=== PATIENT | female | born 1940 | race Caucasian/White ===

== ENCOUNTER 2017-08-12 19:26 | Inpatient (IN) | payer MEDICAID ==
[~2017-08-12] VITALS: Ht 165.1 cm; Wt 78.9 kg
[2017-08-12 19:28] VITALS: BP 145/80
--- NOTE | 2017-08-12 19:40 | NUR ---
DEPUTY FAC ENGINEER FROM [facility] PUBLIC PROFESSIONAL ORGANIZER OFFICE RETURNED CALL - CC JACOB GAVE CONSENT FOR TREATMENT ON THE PHONE TO RODGER MOORE RN I LISTENED IN ON THE CALL. PUBLIC ADMINISTRATORS OFFICE [phone] AFTER HOURS ANSWERING SERVICE [phone]
[2017-08-12] MEDS ORDERED: CLARITIN10 MG PO (19:41)
[2017-08-12] MEDS ORDERED: FLONASE 0.05%50 MCG NASAL (19:43)
[2017-08-12] MEDS ORDERED: REMERON15 MG PO (19:45)
[2017-08-12] MEDS ORDERED: QUETIAPINE FUM100 MG PO ×2 (19:46→19:51)
[2017-08-12] MEDS ORDERED: VITAMIN D2000 UNIT PO (19:50)
[2017-08-12] MEDS ORDERED: TYLENOL325 MG PO (19:53)
[2017-08-12] MEDS ORDERED: MIRALAX17 G1 PO (19:54)
[2017-08-12 20:03] LABS: ABSOLUTE BASOPHILS 0.1 thou/uL (0.0-0.2); ABSOLUTE EOSINOPHILS 0.5 thou/uL (0.0-0.7); ABSOLUTE LYMPHOCYTES 2.2 thou/uL (0.8-5.3); ABSOLUTE NEUTROPHILS 4.5 thou/uL (1.6-8.1); EOSINOPHILS 6.4 %; HEMATOCRIT 24.5 % (37.0-47.0); HEMOGLOBIN 7.3 gm/dL (12.0-15.0); LYMPHOCYTES 26.8 %; MCH 20.5 pg (26.0-34.0); MCHC 29.9 g/dL (28.0-37.0); MCV 68.5 fL (80.0-100.0); MONOCYTES 11.8 %; MPV 7.9 fl. (7.2-11.1); NUCLEATED RBCS 0 /100WBC; PLATELET COUNT* 424 thou/uL (150-400); RBC 3.57 mil/uL (4.20-5.00); RDW-CV 16.4 % (10.5-14.5); WBC 8.4 thou/uL (4.0-11.0)
[2017-08-12 20:15] LABS: CALCIUM 8.6 mg/dL (8.5-10.1); CREATININE 0.8 mg/dL (0.6-1.3); POTASSIUM 3.7 mmol/L (3.5-5.1)
[2017-08-12 20:18] LABS: APTT 24.3 Seconds (25.0-31.3); INR 0.9; PROTIME 9.2 Seconds (9.20-11.50)
[2017-08-12 20:20] LABS: ALBUMIN 2.9 g/dL (3.4-5.0); TOTAL BILIRUBIN 0.2 mg/dL (<0.1-1.0); TOTAL PROTEIN 6.7 g/dL (6.4-8.2)
[2017-08-12 20:30] LABS: HYPOCHROMASIA 2+; OVALOCYTES 1+; PLATELET ESTIMATE ADEQUATE
[2017-08-12 20:31] LABS: MICROCYTES 3+
[2017-08-12 20:32] LABS: ANISOCYTOSIS 1+
[2017-08-12 21:06] VITALS: BP 111/00
[2017-08-12 21:41] LABS: URINE BILIRUBIN NEGATIVE (Negative); URINE BLOOD NEGATIVE (Negative); URINE CLARITY CLEAR; URINE COLOR STRAW; URINE GLUCOSE-RANDOM NEGATIVE (Negative); URINE KETONES NEGATIVE (Negative); URINE LEUKOCYTES-REFLEX TRACE (Negative); URINE NITRITE-REFLEX NEGATIVE (Negative); URINE PROTEIN NEGATIVE (Negative); URINE SPECIFIC GRAVITY <= 1.005 (1.005-1.030); URINE UROBILINOGEN 0.2 E.U./dl (0.2-1.0)
[2017-08-12 21:50] LABS: CRYSTALS None Seen /LPF (None Seen); MUCUS None Seen strn/LPF (None Seen); SQUAMOUS 0-3 Few /LPF (0-3)
[2017-08-12 21:51] LABS: BACTERIA-REFLEX 1-9 Few /HPF (None Seen); CASTS None Seen /LPF (None Seen); URINE WBC-REFLEX 0-5 Rare /HPF (0-5)
[2017-08-12 21:53] LABS: URINE RBC None Seen /HPF (0-2)
[2017-08-12 22:00] VITALS: BP 118/64
[2017-08-12 22:24] VITALS: BP 118/52
[2017-08-13 03:41] VITALS: BP 96/45
--- NOTE | 2017-08-13 03:52 | NUR ---
ASSUMED PT CARE AT 2200. PT IS AWAKE AND ALERT TO SELF. SHE IS FROM [facility]. PT IS TRACING NSR ON THE MONITOR, ON RA SATTING MID TO HIGH 90'S. PT DENIES ANY PAIN OR NEEDS AT THIS TIME. PT IS A VERY POOR HISTORIAN. ADMISSION ASSESSMENT COMPELTED CHARTED, VERBAL CONSENT GIVEN BY HECTOR JAMES RECIEVED OVER THE PHONE FOR BLOOD PRODUICTS NEEDED. PT IS UP WITH ONE TO THE BR. BED IN LOW POSITION, CALL LIGHT IN REACH, BED ALARM ON, YELLOW ARM ABND AND SOCKS IN PLACE. HOURLY ROUNDING COMPELTED FOR PT SAFETY.
[2017-08-13 06:09] LABS: HEMATOCRIT 22.8 % (37.0-47.0); MCH 20.7 pg (26.0-34.0); MCHC 30.2 g/dL (28.0-37.0); MCV 68.7 fL (80.0-100.0); MPV 7.6 fl. (7.2-11.1); RBC 3.31 mil/uL (4.20-5.00); RDW-CV 16.7 % (10.5-14.5); WBC 5.4 thou/uL (4.0-11.0)
[2017-08-13 06:10] LABS: HEMOGLOBIN 6.9 gm/dL (12.0-15.0)
[2017-08-13 06:30] LABS: CALCIUM 8.2 mg/dL (8.5-10.1); CREATININE 0.7 mg/dL (0.6-1.3); POTASSIUM 4.2 mmol/L (3.5-5.1)
[2017-08-13 08:30] VITALS: BP 109/58
--- NOTE | 2017-08-13 08:30 | NUR ---
ASSUMED CARE OF PT AT 0730. PT RESTING IN BED. PT A&0X2, FLAT, PLEASANTLY CONFUSED. PT DENIES ANY PAIN OR SHORTNESS OF BREATH AT THIS TIME. PT HGB THIS AM 6.9. ORDERS RECEIVED FOR 1 UNIT PRBC. AWAITING BLOOD READINESS AT THIS TIME AND WILL ADMINISTER. CONSENT SIGNED AND PLACED IN FRONT OF CHART. PT TRACING SR ON THE IT BUSINESS PROCESS ARCHITECT. ON RA SAT 93%. PT HAS NON PRODUCTIVE COUGH. PT UP WITH 1 ASSIST STANDBY TO BATHROOM. PT IS ON MECHANICAL ALTERED CHOPPED DIET HAS NO TEETH. PT GOAL FOR TODAY IS TO MONITOR HGB, POSSIBLE GI CONSULT AND ADMINISTER 1 UNIT PRBC WITH NO COMPLICATIONS. AM ASSESSMENT CHARTED. MEDICATIONS PER JUN. PT REPOSITIONS SELF IN BED WITH REMINDERS. HOURLY ROUNDING OBSERVED. BED IN LOW POSITION. BED ALARM IN PLACE. FALL PRECAUTIONS IN PLACE. CALL LIGHT WITHIN REACH. WILL CONTINUE PLAN OF CARE.
[2017-08-13 08:54] VITALS: BP 105/57; BP 109/63; BP 109/69; BP 117/55; BP 126/62
[2017-08-13 13:40] LABS: ABSOLUTE BASOPHILS 0.1 thou/uL (0.0-0.2); ABSOLUTE EOSINOPHILS 0.2 thou/uL (0.0-0.7); ABSOLUTE MONOCYTES 0.6 thou/uL (0.0-1.2); ABSOLUTE NEUTROPHILS 3.1 thou/uL (1.6-8.1); BASOPHILS 1.1 %; EOSINOPHILS 4.9 %; HEMATOCRIT 27.5 % (37.0-47.0); HEMOGLOBIN 8.4 gm/dL (12.0-15.0); LYMPHOCYTES 20.5 %; MCH 21.7 pg (26.0-34.0); MCHC 30.5 g/dL (28.0-37.0); MONOCYTES 12.2 %; MPV 7.9 fl. (7.2-11.1); NUCLEATED RBCS 0 /100WBC; PLATELET COUNT* 402 thou/uL (150-400); POLYS 61.3 %; RBC 3.88 mil/uL (4.20-5.00)
--- NOTE | 2017-08-13 13:59 | NUR ---
CHART REVIEWED AND MET WITH PT. SHE ONLY ANSWERED IN ONE OR TWO WORDS. CALL TO SUSANA/LYNDSEY. PT IS LTC RESIDENT ON THEIR [facility]. SHE DOES AMBULATE SOME. PT HAS PUBLIC BED PLACEMENT COORDINATOR FOR ALL DECISION MAKING/GOMEZ ALONZO [phone]. CM TO FOLLOW
[2017-08-13 15:14] LABS: HYPOCHROMASIA 3+; OVALOCYTES 1+; PLATELET ESTIMATE INCREASED; POIKILOCYTOSIS 1+; POLYCHROMASIA 1+; SCHISTOCYTES 1+; TEARDROPS 1+
[2017-08-13 15:15] LABS: ANISOCYTOSIS 2+
--- NOTE | 2017-08-13 16:52 | NUR ---
NO ACUTE CHANGES THROUGHOUT SHIFT. REFER TO CHARTING. PT CONTINUES TO TRACE SR ON THE EXCELLENCE SPECIALIST. ON RA SAT UPPER 90'S. DENIES ANY PAIN OR SHORTNESS OF BREATH. PT UP WITH 1 ASSIST TO BATHROOM. PT HAS NOT HAD ANY BOWEL MOVEMENTS TODAY. PT NPO AFTER MIDNIGHT FOR EGD TOMORROW WITH DR HOPE. PT SLOWLY PROGRESSING TOWARDS GOALS HGB INCREASED TO 8.4 WITH 1 UNIT PRBC. PT CONTINUES TO BE A&0X2 ONLY, FORGETFUL AND CONFUSED AT TIMES. MEDICATIONS PER MAR. PT REPOSITIONS SELF. HOURLY ROUNDING OBSERVED. BED IN LOW POSITION. BED ALARM IN PLACE. FALL PRECAUTIONS IN PLACE. CALL LIGHT WITHIN REACH. WILL CONTINUE PLAN OF CARE.
[2017-08-13 17:11] VITALS: BP 121/64
[2017-08-13 20:00] VITALS: BP 130/71
[2017-08-13 23:53] VITALS: BP 104/41
--- NOTE | 2017-08-14 02:35 | NUR ---
PATIENT RESTED IN BED, NO ACUTE CHANGES. PATIENT DID NOT SHOW SIGNS OF DISTRESS. THE PATIENT IS NPO, PATIENT TO RECIEVE EGD TODAY. FALL PRECAUTIONS IN PLACEM BED ALARM ON, HOURLY ROUNDING OBSERVED, CALL LIGHT WITHIN REACH. PATIENT A AND O TIMES 2.
[2017-08-14 04:00] VITALS: BP 92/42
[2017-08-14 05:44] VITALS: BP 92/42
--- NOTE | 2017-08-14 07:25 | NUR ---
CHANGE OF SHIFT BEDSIDE REPORT GIVEN ASSUMED PATIENT CARE PATIEMT SEE AT BEDSIDE ASLEEP BED ALARM SET
[2017-08-14 08:00] VITALS: BP 120/64
[2017-08-14 11:22] VITALS: BP 90/45
--- NOTE | 2017-08-14 15:27 | NUR ---
SPOKE WITH KAREN/SUSANA. UPDATE GIVEN
--- NOTE | 2017-08-14 18:31 | NUR ---
PATIENT LAYING IN BED AND RESTING A AND O X 2-3, FORGETFUL SR 1ST DEGREE AT TIMES RA GOOD APPETITE LAST BM TODAY SMALL GOOD YELLOW UO, UNMEASURED UP WITH 1 ASSIST TO BRP REF SCDS BED ALARM SET NEW IV SITE 20 GA R FA SL NO C/O PAIN TODAY CALL LIGHT IN REACH AND INSTUCTION GIVEN AND FOLLOWED AT TIMES EGD COMPLETE TODAY GI CONS
[2017-08-14 20:00] VITALS: BP 112/68
[2017-08-14 23:46] VITALS: BP 91/53
[2017-08-15] VITALS (7 sets, daily range): BP systolic 83–120; BP diastolic 53–73
[2017-08-15 04:56] LABS: HEMATOCRIT 25.6 % (37.0-47.0); HEMOGLOBIN 7.8 gm/dL (12.0-15.0)
--- NOTE | 2017-08-15 05:32 | NUR ---
PATIENT RESTED IN BED. PATIENT DID NOT SHOW SIGNS OF DISTRESS. PATIENT BLOOD PRESSURE DROP TO 87/54, DOCTOR ADRIANO NOTIFIED. H AND H ORDERED, 500 ML NS BOLUS ALSO ORDERED. PATIENT BP RETURN TO NORMAL POST BOLUS, 114/62. FALL PRECAUTIONS IN BED, BED ALARM ON, CALL LIGHT WITHIN REACH. PATIENT PUT ON 1 LITER OF OXYGEN, PATIENT OXYGEN DECREASE TO 88 AND 89. ONCE OXYGEN APPLIED, OXYGEN INCREASE TO NORMAL.
--- NOTE | 2017-08-15 07:10 | NUR ---
CHANGE OF SHIFT BEDSIDE REPORT GIVEN ASSUMED PATIENT CARE PATIENT SEEN AT BEDSIDE, ASLEEP BED ALARM SET
[2017-08-16] VITALS: BP 109/66
[2017-08-16 04:00] VITALS: BP 122/47; BP 83/46
--- NOTE | 2017-08-16 04:17 | NUR ---
PATIENT RESTED IN BED, NO ACUTE CHANGES. PATIENT DID NOT SHOW SIGNS OF DISTRESS. FALL PRECAUTIONS IN PLACE, BED ALARM ON, CALL LIGHT WITHIN REACH, HOURLY ROUNDING OBSERVED.
[2017-08-16 04:30] VITALS: BP 105/62
[2017-08-16 08:31] VITALS: BP 115/60
--- NOTE | 2017-08-16 12:40 | NUR ---
Pt to dc to [facility] today; MANNIE spoke with Arianne who had already scheduled transportation for 1400. Arianne discussed since pt Medicaid, there will not be covered therapies but if the orders specified therapies, they may be able to see about providing some therapy. MANNIE faxed final orders and med list to [phone]. Phone [phone]. MANNIE called pt public home care administrator Ary Hines at [phone] and informed of dc plans and faxed dc information to fax [phone]. MANNIE spoke with pt who was understanding of dc plan. No other dc needs expressed.
[2017-08-16 13:01] VITALS: BP 100/48
[2017-08-16 13:04] VITALS: BP 100/48
[2017-08-16] MEDS ORDERED: CARAFATE 1 GM TA1 G1 PO (13:07)
[2017-08-16] MEDS ORDERED: PROTONIX40 M1 PO (13:10)
[2017-08-16] MEDS ORDERED: IRON325 PO (13:10)
--- NOTE | 2017-08-16 13:29 | NUR ---
report called to sandi ramirez at [facility].
--- NOTE | 2017-08-16 14:14 | NUR ---
TELE AND IV DISCONTINUED PT TO [facility].
--- NOTE | 2017-08-23 13:09 | CON ---
[address] [address] CONSULTATION Name: ROSALINDA JORGENSEN Room: [address] IN M.R.#: [id number] Admission: 08/12/17 Attend Phys: Michel Linares MD Discharge: 08/16/17 Date of : 42 Report #: [id number] THIS REPORT FOR: //name// CC: Michel Kirk [facility] DICTATED BY: Laura HERNANDEZ DATE OF SERVICE: 08/13/2017 Please note at the time of this dictation, the patient was seen and physically examined by myself. REASON FOR CONSULTATION: Low hemoglobin. HISTORY OF PRESENT ILLNESS: This 77-year-old female who is a very poor historian, who is awarded to the [employer] and has been living at [facility] for some time. She has a long-term history of schizophrenia with baseline confusion and is unable to give me any history at the time of this dictation. All has been obtained by her wildlife officer who was very little help as well as the alf itself. They did mention that she has not had any overt bleeding that they have noted of any nausea, vomiting or any melanotic stool. It was noted that she had a hemoglobin in June of 7.8 and the last hemoglobin prior to that was 01/2017, it was 10.1. She does not take an iron supplement in looking at her medication list. ALLERGIES: No known drug allergies. MEDICATIONS: MiraLax, Tylenol, Seroquel, vitamin D, Remeron, Flonase and Claritin. PAST MEDICAL HISTORY: Schizophrenia and allergies. PAST SURGICAL HISTORY: Plate in her left foot and a tubal ligation. FAMILY HISTORY: Noncontributory. SOCIAL HISTORY: History of alcohol use in the past documented in the chart, otherwise essentially negative. REVIEW OF SYSTEMS: Twelve-point review of systems is essentially negative. PHYSICAL EXAMINATION: VITAL SIGNS: Temperature 37.1, pulse 82, respirations 18, blood pressure 109/58[place] [address] CONSULTATION Name: JORGENSENROSALINDA Room: [address]#: [id number] Admission: 08/12/17 Attend Phys: Michel Linares MD Discharge: 08/16/17 Date of : 42 Report #: [id number] HEART: Regular rate and rhythm. LUNGS: Clear. ABDOMEN: Soft, positive bowel sounds in all 4 quadrants with no masses or tenderness noted. LABORATORY DATA: Hemoglobin on admission was 7.3, she was down to 6.9. She got a unit of blood this morning. On admission from [facility], they said she was 6.6, hematocrit is 22.8, white count is 5.4, platelets 393. Sodium 144, potassium 4.2, chloride 107, CO2 of 28, BUN is 8, creatinine 0.7, GFR is 81, glucose is 116. PT is 9.2, INR is 0.9. CT of the abdomen and pelvis showed very large hiatal hernia and cholelithiasis. Iron was 8, TIBC was 356, percentage sat was 2, ferritin was 3, B12 was 297. IMPRESSION: 1. Acute anemia. 2. History of schizophrenia. 3. Large hiatal hernia. PLAN: 1. Monitor for any overt bleeding. 2. We will check soluble transferrin level. 3. Consider EGD only and check for Andres erosions for possible iron deficiency anemia. Doubt the patient would be able to tolerate a prep for colonoscopy at this time. 4. Further recommendations to be made after Dr. Ham sees the patient later today. Thank you for allowing us to participate in this patient's care. Please do not hesitate to call with any questions in regard to this consult. <ELECTRONICALLY SIGNED> By: Sammi Ham MD 08/23/17 1309 1334 0045Sammi Ham MD /nt
--- NOTE | 2017-08-23 13:09 | CON ---
[address] [address] CONSULTATION Name: JORGENSENROSALINDA Room: [address] IN .R.#: [id number] Admission: 08/12/17 Attend Phys: Michel Linares MD Discharge: 08/16/17 Date of : 41 Report #: [id number] THIS REPORT FOR: //name// CC: Michel Kirk DATE OF SERVICE: 08/13/2017 ADDENDUM This is a 77-year-old female who has schizophrenia and resides in [facility]. The patient was admitted to hospital with low hemoglobin of 6.6. Reviewing the patient meds, she is not on any NSAIDs. We will obtain iron studies and perform an upper endoscopy to rule out different etiologies of severe anemia. Meanwhile, the patient's hemoglobin is 8.4, up from 6.9 on admission due to blood transfusion. We will continue to monitor H and H and transfuse as needed. <ELECTRONICALLY SIGNED> By: Sammi Ham MD 08/23/17 1309 1728 0012Sammi Ham MD /nt
== END 2017-08-16 13:20 | DRG 812 ==
LOC: M.ERS 19:26 → M.TBA-ER 20:45 → M.2W 20:45
PROVIDERS: Family Medicine; Internal Medicine; ADMIT Internal Medicine
PROC: 30233N1 Transfusion of Nonautologous Red Blood Cells into Peripheral Vein, Percutaneous Approach (ICD-10-PCS; principal; 2017-08-13)
PROC: 0DB58ZX Excision of Esophagus, Via Natural or Artificial Opening Endoscopic, Diagnostic (ICD-10-PCS; 2017-08-14)
DX: D50.9 Iron deficiency anemia, unspecified (principal); K92.2 Gastrointestinal hemorrhage, unspecified; F20.9 Schizophrenia, unspecified; K44.9 Diaphragmatic hernia without obstruction or gangrene; K59.00 Constipation, unspecified; J30.9 Allergic rhinitis, unspecified; K21.0 Gastro-esophageal reflux disease with esophagitis; K22.2 Esophageal obstruction; F03.90 Unspecified dementia, unspecified severity, without behavioral disturbance, psychotic disturbance, mood disturbance, and anxiety; R13.14 Dysphagia, pharyngoesophageal phase; R12 Heartburn; R93.3 Abnormal findings on diagnostic imaging of other parts of digestive tract

== ENCOUNTER → 2018-01-07 | Outpatient (CLI) | payer MEDICAID ==
[~2018-01-07] MED LIST: CARAFATE 1 GM TA1 G1 PO; CLARITIN10 MG PO; FLONASE 0.05%50 MCG NASAL; IRON325 PO; MIRALAX17 G1 PO; PROTONIX40 M1 PO; QUETIAPINE FUM100 MG PO; REMERON15 MG PO; TYLENOL325 MG PO; VITAMIN D2000 UNIT PO
== END ==
LOC: M.NUC 07:11
DX: K31.84 Gastroparesis (principal); K21.0 Gastro-esophageal reflux disease with esophagitis; R11.2 Nausea with vomiting, unspecified; Z72.89 Other problems related to lifestyle; F20.9 Schizophrenia, unspecified

== ENCOUNTER 2018-06-27 13:42 | Inpatient (IN) | payer MEDICAID ==
[~2018-06-27] VITALS: Ht 165.1 cm; Wt 74.8 kg
--- NOTE | ~2018-06-27 | PROC ---
[address] [address] PROCEDURE REPORT Name: ROSALINDA JORGENSEN Room: [address] IN .R.#: [id number] Admission: 06/27/18 Attend Phys: Edward Olvera MD Discharge: Date of : 42 Report #: [id number] THIS REPORT FOR: //name// For GI report, please see the Provation report in Perceptive 7 content. By: 1200Medical Records Staff [facility] /TYLER
[2018-06-27 13:48] VITALS: BP 145/91
[2018-06-27] MEDS ORDERED: ZANTAC 150MG T150 MG PO (13:58)
[2018-06-27] MEDS ORDERED: LASIX 20 MG TAB20 MG PO (13:58)
[2018-06-27] MEDS ORDERED: HALLS3.2 MG PO (13:59)
[2018-06-27 14:16] LABS: ABSOLUTE BASOPHILS 0.1 thou/uL (0.0-0.2); ABSOLUTE LYMPHOCYTES 1.3 thou/uL (0.8-5.3); ABSOLUTE MONOCYTES 1.1 thou/uL (0.0-1.2); ABSOLUTE NEUTROPHILS 8.4 thou/uL (1.6-8.1); HEMOGLOBIN 17.8 gm/dL (12.0-15.0); LYMPHOCYTES 12.2 %; MCH 30.2 pg (26.0-34.0); MCV 91.5 fL (80.0-100.0); MONOCYTES 10.3 %; MPV 9.3 fl. (7.2-11.1); NUCLEATED RBCS 0 /100WBC; PLATELET COUNT* 311 thou/uL (150-400); POLYS 76.5 %; RDW-CV 14.1 % (10.5-14.5)
--- NOTE | 2018-06-27 14:30 | NUR ---
NALLELY ANN PT GUARDIAN CONTACTED FOR CONSENT TO TREAT.
[2018-06-27 14:37] LABS: NT-PRO BRAIN NAT PEPTIDE 203 pg/mL (<300); TROPONIN-I LEVEL <0.06 ng/mL (<0.06)
[2018-06-27 15:08] LABS: ALBUMIN 3.7 g/dL (3.4-5.0); CREATININE 1.1 mg/dL (0.6-1.3); POTASSIUM 4.6 mmol/L (3.5-5.1); TOTAL BILIRUBIN 0.8 mg/dL (<0.1-1.0); TOTAL PROTEIN 8.1 g/dL (6.4-8.2)
[2018-06-27 15:30] LABS: URINE BLOOD 2+ (Negative); URINE COLOR YELLOW; URINE GLUCOSE-RANDOM NEGATIVE (Negative); URINE KETONES 2+ (Negative); URINE LEUKOCYTES-REFLEX NEGATIVE (Negative); URINE NITRITE-REFLEX NEGATIVE (Negative); URINE PROTEIN 1+ (Negative); URINE SPECIFIC GRAVITY >= 1.030 (1.005-1.030)
[2018-06-27 15:32] LABS: ICTOTEST (BILI CONFIRMATORY) Negative (Negative); URINE BILIRUBIN 2+ (Negative); URINE CLARITY HAZY
[2018-06-27 15:45] LABS: BACTERIA-REFLEX 1-9 Few /HPF (None Seen); COARSE GRANULAR CASTS 0-3 Few /LPF (None Seen); CRYSTALS None Seen /LPF (None Seen); FINE GRANULAR CASTS 0-3 Few /LPF (None Seen); SQUAMOUS 0-3 Few /LPF (0-3); URINE RBC 0-2 Rare /HPF (0-2); URINE WBC-REFLEX 0-5 Rare /HPF (0-5)
[2018-06-27 18:02] VITALS: BP 135/70
[2018-06-27 18:43] VITALS: BP 138/88
[2018-06-27 20:00] VITALS: BP 122/84
--- NOTE | 2018-06-27 20:04 | NUR ---
PATIENT ARRIVED ON UNIT FROM ER AT 181. PATIENT IS NON-VERBAL. VITAL SIGNS AND SPO2 STABLE. 3L 02 NC. IV CLEAN, FLUIDS INFUSING. CALLED SON TO COMPLETED ADMISSION ASSESSMENT AND HISTORY. ALL RAILS UP ON BED, BED ALARM ON. COMPLETED HOURLY ROUNDING, CALL LIGHT WITHIN REACH. WILL CONTINUE TO MONITOR.
[2018-06-28 04:21] LABS: HEMATOCRIT 46.5 % (37.0-47.0); MCH 29.9 pg (26.0-34.0); MCHC 32.3 g/dL (28.0-37.0); MCV 92.5 fL (80.0-100.0); MPV 9.3 fl. (7.2-11.1); RBC 5.03 mil/uL (4.20-5.00); RDW-CV 14.3 % (10.5-14.5); WBC 7.4 thou/uL (4.0-11.0)
[2018-06-28 04:47] LABS: CALCIUM 9.1 mg/dL (8.5-10.1); CREATININE 0.8 mg/dL (0.6-1.3); MAGNESIUM 2.1 mg/dL (1.8-2.4); POTASSIUM 3.8 mmol/L (3.5-5.1)
--- NOTE | 2018-06-28 05:04 | NUR ---
PT SLEPT MOST OF THE NIGHT. FALL RISK PRECAUTIONS IN PLACE. PT C/O PAIN, MEDS GVIEN ORDERED. HOURLY ROUNDING COMPLETED. WILL CONTINUE TO MONITOR.
[2018-06-28 07:30] VITALS: BP 134/75
--- NOTE | 2018-06-28 15:57 | NUR ---
PT.UNABLE TO ANSWER QUESTIONS. REVIEW OF CHART AND SPOKE WITH NURSING. PT.LIVES AT [facility] ESTELA CALLAHAN. SHE HAS A HX OF SCHIZOPHRENIA. SHE HAS A PUBLIC GUARDAIN-PUBLIC WELLNESS PROGRAM COORDINATOR NALLELY [id number]-[phone] PER LEGAL DOCUMENT IN CHART CHART. PT.IS WC BOUND. COMPLETELY DEPENDENT WITH CARES. CM WILL FOLLOW UP WITH JAMSHIDRITOMiguel CALLAHAN ON SATURDAY.
[2018-06-28 17:30] VITALS: BP 116/71
--- NOTE | 2018-06-28 17:36 | EKG ---
[place] [address] ELECTROCARDIOGRAM REPORT Name: ROSALINDA JORGENSEN Room: [address] ADM IN .R.#: [id number] Admission: 06/27/18 Attend Phys: Edward Olvera MD Discharge: Date of : 42 Report #: [id number] THIS REPORT FOR: //name// [facility] ED Test Date: 2018-06-27 Test Time: 13:52:56 Pat Name: ROSALINDA JORGENSEN Department: Room: [facility] Gender: F Mortgage Loan Officer: Aileen LANCASTER : 1940 Requested By: Christiano Nazario Order Number: [id number] MD: Reymundo Garcia Measurements Intervals [place] Rate: 97 P: 14 MA: 144 QRS: -48 QRSD: 153 T: 126 QT: 391 QTc: 497 Interpretive Statements Sinus rhythm Left bundle branch block No previous ECG available for comparison Electronically Signed On 06-28-2018 17:36:23 CDT by Reymundo Garcia [email or web address] <ELECTRONICALLY SIGNED> By: Reymundo Garcia MD, [facility] 06/28/18 1736 1352 1352 Reymundo Garcia MD, FACC /EPI
--- NOTE | 2018-06-28 20:08 | NUR ---
PT ALERT TO SELF ONLY. PT SLEPT THE MOST DURING THE DAY. VITALS, SpO2 STABLE. PT WAS RETAINING URINE. BLADDER WAS FULL. AGGARWAL PLACED. PT VOID 1350 ML RIGHT AWAY. PT HAS DIFFICULTY SWALLOWING. BUT ABLE TO TOLERATE DINNER. PT PULLED HER IV OUT. NEW IV PLACED. FLUIDS INFUSING. TOLERATED PAIN MEDS. NO NAUSEA AND VOMITING. BED ALARM ON. ALL RAILS UP. CALL LIGHT WITHIN REACH. COMPLETED HOURLY ROUNDING. WILL CONTINUE TO MONITOR.
[2018-06-28 20:30] VITALS: BP 103/62
[2018-06-29 04:23] LABS: CALCIUM 9.1 mg/dL (8.5-10.1); CREATININE 0.8 mg/dL (0.6-1.3); MAGNESIUM 1.9 mg/dL (1.8-2.4); POTASSIUM 3.4 mmol/L (3.5-5.1)
--- NOTE | 2018-06-29 05:40 | NUR ---
Confused and nonverbal. She had pulled out her IV on previous shift and taken off her gown. New IV was started in rt wrist and had fluids running but EMAR discontinued her fluids, she is now saline locked. She had her hands in her mouth and was like chewing on them, pain meds were given and this did help. She has O2 at 2L n/c and O2 sat has been 94-95%. At almost 0400 she began to take off her gown and putting her legs through the siderails of the bed. Pain med was given and she has been sleeping well since then. It was observed that she has some redness to buttocks and barrier cream was applied. [place] cath continues to be to DD.
[2018-06-29 08:00] VITALS: BP 168/80
[2018-06-29 18:11] VITALS: BP 91/59
--- NOTE | 2018-06-29 19:01 | NUR ---
PT ALERT TO SELF ONLY. CONFUSED. RESTLESS, CONSTANTLY MOVING AND TAKING CLOTHES OFF. AGGARWAL IN PLACE WITH MELITA YELLOW URINE. PT VERBALIZE A COUPLE OF WORDS DURING SHIFT. IV INFILTRATED. RESTARTED ON LEFT WRIST. PT WILL TAKE PILLS CRUSHED IN VANILLA PUDDING. OXYGEN @ 2 L/NC. PT CONSTANTLY REMOVING. MITTS PLACED ON PATIENT @ 1830. HOURLY ROUNDS MAINTAINED. CALL LIGHT WITHIN REACH.
[2018-06-29 20:00] VITALS: BP 110/63
[2018-06-30 04:26] LABS: CALCIUM 8.7 mg/dL (8.5-10.1); CREATININE 0.7 mg/dL (0.6-1.3); MAGNESIUM 1.8 mg/dL (1.8-2.4); POTASSIUM 3.1 mmol/L (3.5-5.1)
--- NOTE | 2018-06-30 07:39 | NUR ---
Confused but quiet. Shehas been sleeping most of the shift. Turned every 2 hours. This am K+ and Mg+ are low and electrolyte protocol is in place.
[2018-06-30 07:58] VITALS: BP 91/59
--- NOTE | 2018-06-30 12:59 | NUR ---
Nutrition: Consult received for anorexia 2/2 gastritis. Physician indicated mild PCM - defer. Pt is tolerating regulat diet well. Noted pt may need feeding assisstance. Albumin 3.7, K+ 3.1. Pt is nonvocal. Wt: 170#. Admitted with dehydration, volume depletion. RD will order Ensure for added nutrition/hydration. Mild risk.
[2018-06-30 14:06] LABS: MAGNESIUM 1.7 mg/dL (1.8-2.4); POTASSIUM 3.9 mmol/L (3.5-5.1)
[2018-06-30 16:47] VITALS: BP 90/42
--- NOTE | 2018-06-30 16:55 | NUR ---
PT REMAINED ALERT AND NONVERBAL. PT SLEPT MOST OF THE DAY. PT FED DURING MEALS, PT PECULIAR ABOUT WHICH FOODS TO EAT. TAKES MEDS WITH PUDDING. SUPPLEMENT ORDERED. PT BLOOD PRESSURE 90/42, DOCTOR NOTIFIED NO NEW ORDERS. POTASSIUM AND MAGNESIUM REPLACED. REDRAW MAGNESIUM AFTER SECOND DOSE. AGGARWAL IN PLACE. PT HAS MITTENS ON HAND TO PREVENT AGGARWAL AND IV REMOVAL. FALL RISK PRECAUTIONS IN PLACE. HOURLY ROUNDING COMPLETED. WILL CONTINUE TO MONITOR.
--- NOTE | 2018-06-30 16:58 | NUR ---
SPOKE WITH MANASA/ESTELA CALLAHAN EARLIER TO LET HER KNOW PT.MAY BE READY FOR DISCHARGE SOON. SHE SAID PT.IS USUALLY AMBULATORY AT [facility] SHE DRESSES HERSELF, FEEDS HERSELF,IS COOPERATIVE, CAN ANSWER SIMPLE QUESTIONS. SHE SAID BEHAVIOURS PT.IS EXHIBITING IS NOT COMMON FOR HER. SHE DISCUSSED WITH HER DON. THEY RECOMMEND A PSYCH EVAL. JAXSON SANTORO INFORMED. TOLD MANASA,THAT SURGERY WAS SEEING HER AND HAD ORDERED MORE TESTS.
--- NOTE | 2018-06-30 17:36 | NUR ---
UPPER GI ORDERED FOR TOMORROW. NPO AFTER MIDNIGHT.
[2018-06-30 20:30] VITALS: BP 109/60
[2018-07-01 04:11] LABS: CREATININE 0.7 mg/dL (0.6-1.3); MAGNESIUM 1.7 mg/dL (1.8-2.4); POTASSIUM 3.3 mmol/L (3.5-5.1)
--- NOTE | 2018-07-01 07:38 | NUR ---
PATIENT HAS SLEPT MOST OF THE NIGHT. VSS ON 2L 02 VIA NASAL CANNULA. NO C/O PAIN. PATIENT HAS REMAINED NPO SINCE MIDNIGHT. AGGARWAL TO DEPENDENT DRAINAGE WITH DARK YELLOW URINE OUTPUT. PATIENT HAS BEEN INCONTINENT X 3 OF LOOSE BOWEL AND MARY CARE PERFORMED AND BARRIER CREAM APPLIED. IV IN LEFT WRIST-FLUIDS RUNNING AT 80ML/HR. FALL PRECAUTIONS IN PLACE AND HOURLY ROUNDS MADE. WILL CONTINUE WITH PLAN OF CARE AND NURSING TO MONITOR.
--- NOTE | 2018-07-01 15:31 | NUR ---
I have reviewed the documentation by PINO TONEY from TODAY to 07/01/18 and I concur with it. ELÍAS ANGEL
[2018-07-01 16:27] VITALS: BP 105/71
--- NOTE | 2018-07-01 20:23 | NUR ---
I ASSUMED CARE OF THE PATIENT AT 0700. SHE IS ALERT AND ORIENTED TO SELF AND SITUATION. BED IS IN THE LOW LOCKED POSITION AND CALL LIGHT IS IN REACH. BED ALARM IS ON AND PATIENT WAS TURNED EVERY 2 HOURS. POTASSIUM WAS REPLACED. SHE TAKES HER PILLS CRUSHED IN PUDDING. BARRIER CREAM WAS APPLIED. PAIN IS MANAGED WITH PRN MEDS. PATIENT WILL BE NPO AT MIDNIGHT FOR AN EGD TOMORROW. HOURLY ROUNDING WAS COMPLETED AND PATIENT NEEDS WERE MET. WILL CONTINUE TO MONITOR.
[2018-07-02 04:19] LABS: ABSOLUTE EOSINOPHILS 0.2 thou/uL (0.0-0.7); ABSOLUTE LYMPHOCYTES 0.9 thou/uL (0.8-5.3); ABSOLUTE MONOCYTES 0.6 thou/uL (0.0-1.2); ABSOLUTE NEUTROPHILS 2.6 thou/uL (1.6-8.1); BASOPHILS 0.3 %; EOSINOPHILS 5.3 %; HEMATOCRIT 39.4 % (37.0-47.0); LYMPHOCYTES 20.6 %; MCH 30.1 pg (26.0-34.0); MCV 91.2 fL (80.0-100.0); MONOCYTES 13.5 %; MPV 9.4 fl. (7.2-11.1); NUCLEATED RBCS 0 /100WBC; PLATELET COUNT* 158 thou/uL (150-400); POLYS 60.3 %; RBC 4.32 mil/uL (4.20-5.00); RDW-CV 13.7 % (10.5-14.5); WBC 4.3 thou/uL (4.0-11.0)
[2018-07-02 04:41] LABS: ALBUMIN 2.4 g/dL (3.4-5.0); CALCIUM 8.6 mg/dL (8.5-10.1); CREATININE 0.6 mg/dL (0.6-1.3); MAGNESIUM 2.1 mg/dL (1.8-2.4); POTASSIUM 4.3 mmol/L (3.5-5.1); TOTAL BILIRUBIN 0.5 mg/dL (<0.1-1.0); TOTAL PROTEIN 5.3 g/dL (6.4-8.2)
[2018-07-02 08:00] VITALS: BP 113/78
--- NOTE | 2018-07-02 11:31 | NUR ---
EKG HERE FOR STAT EKG D/T RHYTHM CHANGE IN RECOVERY.
--- NOTE | 2018-07-02 15:03 | NUR ---
I have reviewed the documentation by PINO TONEY from TODAY to 07/02/18 and I concur with it. ELÍAS ANGEL
--- NOTE | 2018-07-02 16:21 | NUR ---
PT POOR APPETITE. SPITS FOOD AT STAFF WHEN ASSISTED WITH MEALS. IVF INFUSING. WILL TAKE MEDICATION WITH ENCOURAGEMENT. EGD THIS AM. PT IMPULSIVE AND ATTEMPTS TO PULL AT AGGARWAL. UNABLE TO BE REDIRECTED. MITTENS APPLIED BUT PT MOVES HANDS AND ARMS FREELY. PT ATTEMPTS TO CLIMB OUT OF BED AND LEGS FREQUENTLY ASSISTED BACK INTO THE BED. AGGARWAL CATH DRAINING CLEAR YELLOW URINE.
[2018-07-02 16:50] VITALS: BP 113/65
--- NOTE | 2018-07-02 16:52 | EKG ---
[place] [address] ELECTROCARDIOGRAM REPORT Name: ROSALINDA JORGENSEN Room: [address] ADM IN M.R.#: [id number] Admission: 06/27/18 Attend Phys: Edward Olvera MD Discharge: Date of : 42 Report #: [id number] THIS REPORT FOR: //name// [facility] Test Date: 2018-07-02 Test Time: 11:32:26 Pat Name: ROSALINDA JORGENSEN Department: Room: [address] Gender: F Administrative Support Technician: : 1940 Requested By: Pankaj Das Order Number: [id number] Sandro MD: Rafael Alcantara Measurements Intervals [place] Rate: 81 P: 60 MD: 139 QRS: 25 QRSD: 161 T: 105 QT: 425 QTc: 494 Interpretive Statements Sinus rhythm Left bundle branch block Compared to ECG 06/27/2018 13:52:56 No significant changes Electronically Signed On 07-02-2018 16:52:17 CDT by Rafael Alcantara [email or web address] <ELECTRONICALLY SIGNED> By: Rafael Alcantara MD, [facility] 07/02/18 1652 1132 31 Rafael Alcantara MD, FACC /EPI
[2018-07-02 20:00] VITALS: BP 119/73
[2018-07-03 04:17] LABS: CALCIUM 8.8 mg/dL (8.5-10.1); CREATININE 0.8 mg/dL (0.6-1.3); MAGNESIUM 1.9 mg/dL (1.8-2.4); POTASSIUM 3.9 mmol/L (3.5-5.1)
--- NOTE | 2018-07-03 04:42 | NUR ---
ASSUMED PT CARE AT 1915. PT RESTED WELL THROUGHOUT SHIFT, IV FLUIDS INFUSING. PT DRY-HEAVING THIS SHIFT, IV ZOFRAN ADMINISTERED AND EFFECTIVE. PT VOICED NO CONCERNS, Q2H REPOSITIONING COMPLETED, CALL LIGHT WITHIN REACH.
[2018-07-03 06:30] VITALS: BP 91/60
[2018-07-03 08:00] VITALS: BP 108/69
[2018-07-03 16:57] VITALS: BP 116/56
--- NOTE | 2018-07-03 18:15 | NUR ---
PT IS ALERT TO SELF ONLY. WILL SAY YES/NO AT TIMES. IVF DISCONTINUED. AGGARWAL IN PLACE. PT HAS BEEN BEDREST. NO N/V DURING SHIFT. NO NON-VERBAL INDICATORS OF PAIN. PT ABLE TO TOLERATE MEALS AND DRINK FLUIDS. VS STABLE. PT HAS MITTENS ON. HOURLY ROUNDS MAINTAINED. BED ALARM ON. CALL LIGHT WITHIN REACH.
[2018-07-03 21:15] VITALS: BP 96/60
[2018-07-04 04:16] LABS: CALCIUM 8.8 mg/dL (8.5-10.1); CREATININE 0.8 mg/dL (0.6-1.3); POTASSIUM 3.8 mmol/L (3.5-5.1)
--- NOTE | 2018-07-04 04:37 | NUR ---
PATIENT ALERT TO SELF. ONLY A FEW WORDS SPOKEN. RESTING QUIETLY ON HOURLY ROUNDS. TURNED Q2H. CRYING WITH MOVEMENT EARLY AM WITH CXR. PAIN MEDICATION PROVIDED. INC SMALL LIQUID STOOL. ADEQUATE URINE OUTPUT PER AGGARWAL CATHETER. NO EMESIS OR OBVIOUS NAUSEA OR STATED NAUSEA. VITAL SIGNS STABLE ON 4L/MIN O2. CONTINUE TO MONITOR.
[2018-07-04 08:00] VITALS: BP 102/60
[2018-07-04 09:37] LABS: BE 8.5 mmol/L (-2 to +3); PO2 63.6 mmHg (75.0-100.0); pH 7.448 (7.340-7.450)
[2018-07-04 09:38] LABS: PCO2 50.4 mmHg (35.0-45.0)
--- NOTE | 2018-07-04 10:08 | PATH ---
[address] [address] PATHOLOGY RPT PROCEDURE Name: LINDA AGUILA Room: [address] IN .R.#: [id number] Admission: 06/27/18 Date of : 42 Discharge: Report #: [id number] Path Case #: [id number] [facility] Accession Number: [id number] . 01 Material submitted: . ESOPHAGEAL ULCER 25CM . 01 Clinical history: . Esophageal ulcer . 02 Diagnosis: Esophageal ulcer 25 cm: - Benign esophageal and gastric/columnar types mucosa with severe chronic and active inflammation and ulceration compatible with ulcerative reflux, with scattered goblet cells compatible with Mandel's metaplasia, negative for granulomas, diagnostic viral inclusions and dysplasia. (DEANA/db; 07/03/2018) LBQ/07/03/2018 . 02 Electronically signed: . Karsten Be MD, Pathologist NPI- [id number] . 01 Gross description: . The specimen is received in formalin, labeled "Linda Aguila, esophageal ulcer 25 cm", are several bello white mucosal tissues measuring 0.5 x 0.2 x 0.1 cm in aggregate, entirely submitted in A1. ([facility]; 07/01/2018) SHS/SHS . 02 Pathologist provided ICD-10: K22.70, K22.10, K21.0 . 02 CPT . 128376 Specimen Comment: A courtesy copy of this report has been sent to Specimen Comment: [phone], , . Specimen Comment: Report sent to ,DR OH / DR MENJIVAR Specimen Comment: A duplicate report has been generated due to demographic updates. Performed at: 01 [facility] [address] [facility] [address], [place] [id number] MD Julio Yancey MD Phone: [phone] Performed at: [address] [facility] [address], [place], [place] [id number] MD Karsten Be MD Phone: [phone]
--- NOTE | 2018-07-04 11:57 | NUR ---
UPDATED LYNDSEY/ESTELA CALLAHAN ON PTS MENTAL STATUS. SHE SAID ALTHOUGH,PT.IS DIFFERENT THAN SHE WAS AT THEIR FACILITY, THEY WILL ACCEPT HER BACK AT DISCHARGE. TOLD HER P.T. WAS GOING TO WORK WITH PT.TODAY. PT.DOES NOT HAVE SKILLED BENEFITS WITH HER INSURANCE BUT SHE SAID THEY COULD DO RESTORATIVE THERAPY WITH HER WHEN SHE RETURNS TO [place]. TOLD HER PT. WOULD NOT BE DISCHARGING TODAY DUE TO HER LUNG STATUS. SHE SAID TO KEEP HER UPDATED.
--- NOTE | 2018-07-04 14:28 | NUR ---
I have reviewed the documentation by PINO TONEY from 07/03/18 to 07/04/18 and I concur with it. ELÍAS ANGEL
--- NOTE | 2018-07-04 18:45 | NUR ---
PT IS ALERT TO SELF ONLY. WILL ANSWER YES/NO AT TIMES AND STATES, "I DON'T KNOW." PT OXYGEN SATURATION WAS 88 % ON 4 L/NC. INCREASED OXYGEN TO 5 L/NC AND INFORMED PHYSICIAN. ABGS ORDERED. RECEIVED CRITICAL LAB OF PCO2=50.4. PHYSICIAN INFORMED AND NEW ORDERS RECEIVED. PT PARTICIPATED WITH THERAPY TODAY. UP TO CHAIR IN AFTERNOON FOR MEALS. AGGARWAL IN PLACE. IV INFILTRATED, REMOVED, AND REPLACED IN RIGHT FOREARM. HOURLY ROUNDS MAINTAINED. CALL LIGHT WITHIN REACH. BED ALARM ON.
[2018-07-04 18:56] VITALS: BP 92/55
[2018-07-04 20:40] VITALS: BP 103/57
[2018-07-05 04:22] LABS: HEMATOCRIT 40.2 % (37.0-47.0); HEMOGLOBIN 13.6 gm/dL (12.0-15.0); MCH 30.6 pg (26.0-34.0); MCHC 33.7 g/dL (28.0-37.0); MCV 90.6 fL (80.0-100.0); MPV 8.9 fl. (7.2-11.1); NUCLEATED RBCS 0 /100WBC; RBC 4.44 mil/uL (4.20-5.00); RDW-CV 13.9 % (10.5-14.5); WBC 9.6 thou/uL (4.0-11.0)
--- NOTE | 2018-07-05 04:37 | NUR ---
PATIENT ORIENTED X 1 ON HOURLY ROUNDS. MINAMAL VERBAL COMMUNICATION. DOES SAY A FEW WORDS AND FOLLOWS SIMPLE COMMANDS. TURNED Q2H. MEDICATED FOR PAIN X 2 WHEN GRIMACING. SLEPT AT INTERVALS. O2 SAT MAINTAINED AT 91% ON 6L/MIN O2 VIA NASAL CANNULA ON NURSING SPOT CHECKS AND PER RT. RT TX ORDERED. VITAL SIGNS STABLE. OCCASSIONAL COUGH NOTED. ASSISTED WITH ORAL INTAKE. ADEQUATE URINE OUTPUT BY AGGARWAL CATHETER. CONTINUE TO MONITOR.
[2018-07-05 04:43] LABS: ALBUMIN 2.6 g/dL (3.4-5.0); CALCIUM 9.4 mg/dL (8.5-10.1); CREATININE 0.9 mg/dL (0.6-1.3); MAGNESIUM 1.9 mg/dL (1.8-2.4); PLATELET COUNT* 234 thou/uL (150-400); POTASSIUM 3.9 mmol/L (3.5-5.1); TOTAL BILIRUBIN 0.2 mg/dL (<0.1-1.0); TOTAL PROTEIN 6.5 g/dL (6.4-8.2)
[2018-07-05 06:50] LABS: ABSOLUTE LYMPHOCYTES 0.5 thou/uL (0.8-5.3); ABSOLUTE MONOCYTES 0.4 thou/uL (0.0-1.2); ABSOLUTE NEUTROPHILS 8.7 thou/uL (1.6-8.1); PLATELET ESTIMATE ADEQUATE
[2018-07-05 06:51] LABS: ANISOCYTOSIS 1+; POIKILOCYTOSIS 1+
[2018-07-05 08:00] VITALS: BP 118/68
--- NOTE | 2018-07-05 16:30 | NUR ---
PATIENT ALERT AND ORIENTED TO SELF. PLEASANT AND COOPERATIVE. VITAL SIGNS STABLE ON 6L O2 NASAL CANULA. AFEBRILE. IV'S TO RIGHT FOREARM AND RIGHT AC PATENT AND BOTH SALINE LOCKED. AGGARWAL PATENT AND DRAINING DEPENDENTLY. TAKES PILLS CRUSHED IN APPLESAUCE OR PUDDING. TURNED EVERY [address] PRECAUTIONS IN PLACE AND BED ALARM ON. HOURLY ROUNDS MAINTAINED THROUGHOUT THE SHIFT. CALL LIGHT WITHIN REACH. NURSING WILL CONTINUE TO MONITOR.
[2018-07-05 18:03] VITALS: BP 105/68
[2018-07-05 19:30] VITALS: BP 104/62
[2018-07-06 04:22] LABS: CALCIUM 9.2 mg/dL (8.5-10.1); CREATININE 0.9 mg/dL (0.6-1.3); POTASSIUM 4.3 mmol/L (3.5-5.1)
--- NOTE | 2018-07-06 05:30 | NUR ---
ASSUMED CARE AT START OF SHIFT PT QUIET PO MEDICATION TAKEN WITHOUT DIFF BLOOD GLUCOSE 253 TREATED PER PROTOCOL, TURNED EVERY 2 HOURS NO STOOL NOTED AGGARWAL PATENT WITH CLEAR YELLOW URINE, RESTED WELL THROUGHOUT HOURLY ROUNDS.
[2018-07-06 08:15] VITALS: BP 123/69
--- NOTE | 2018-07-06 12:31 | CON ---
[address] [address] CONSULTATION Name: JORGENSENROSALINDA Room: [address] IN ..#: [id number] Admission: 06/27/18 Attend Phys: Edward Olvera MD Discharge: Date of : 42 Report #: [id number] THIS REPORT FOR: //name// CC: Edward Kirk DATE OF SERVICE: 07/05/2018 REQUESTING PHYSICIAN: Elijah Chatman DO. REASON FOR CONSULTATION: Increasing O2 needs. DISCUSSION: The patient is a 78-year-old woman who has a family history of significant psychiatric illness in the form of schizophrenia. She is really unable to provide any history. She lives in long-term care. She was admitted to the hospital here on 06/27/2018 with poor p.o. intake and concern for anemia. When admitted, she was noted to have an extremely large hiatal hernia with much of her stomach herniating up into her abdomen. GI and General Surgery have been involved. She has been on a couple of liters of oxygen since admission. She has not had any fevers. Over the last several days; however, her O2 needs have increased. She went from initially no oxygen on admission 2 liters and then was increased to 8 liters this morning. She is unable to give any history, telling me only that she "hurts all over." When asked specific questions, she does state "I don't know." She did undergo EGD on 07/02/2018. 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 She had nonbleeding esophageal ulcers. PAST MEDICAL HISTORY: Remarkable for the schizophrenia is noted. Per records, we have at [facility], albeit limited, does appear that she has not any known cardiac or lung disease. PAST SURGICAL HISTORY: She has had some type of surgery on her foot. She has had tubal ligation. Other surgeries, unknown. SOCIAL HISTORY: Nonsmoker, but she has been a smoker in the past. She is in long-term care. FAMILY HISTORY: Unable to obtain from the patient. REVIEW OF SYSTEMS: Unable to obtain from the patient given her condition. She notes, "I hurt all over." PHYSICAL EXAMINATION: GENERAL: The patient is an elderly woman. She is in bed. She does have mitts on for safety.` O2 running via nasal cannula. [place] [address] CONSULTATION Name: ROSALINDA JORGENSEN Room: [address] IN [facility]#: [id number] Admission: 06/27/18 Attend Phys: Edward Olvera MD Discharge: Date of : 42 Report #: [id number] currently at 8 liters. HEENT: Head is normocephalic. Sclerae nonicteric. Mucous membranes are little dry. She is able to follow simple commands. NECK: Negative for any definite adenopathy. HEART: Tones are distant, but are regular. No S3 is heard. LUNGS: Did reveal breath sounds to be minimally decreased. She does have a few crackles heard in the bases. No wheezing or crackles are heard. She is having some intermittent cough. No CVA tenderness. ABDOMEN: Protuberant, but soft. Does not appear to have any definite hepatosplenomegaly. There is no guarding or rebound tenderness. [place] catheter is in place. She does not appear to have any significant edema of her lower extremities. SKIN: Warm and dry. NEUROLOGIC: She is alert. She is verbalizing, but again very poor historian. Spontaneously moving all extremities. Cannot provide any other information. LABORATORY AND X-RAY FINDINGS: Chest x-ray was reviewed as she had a study done yesterday, which was portable study showed some mild cardiomegaly, poor inspiration, she has some atelectatic changes seen in the bases, does have density seen, elevation of the hemidiaphragm on the left, which albeit consistent with her large hiatal hernia. This also confirmed on the CT abdomen, which was done on 06/27/2018. Arterial blood gas done yesterday morning, she had a pH of 7.45, pCO2 of 50, pO2 of 64, bicarbonate 34 with a saturation of 92% on 5 liters. On her chemistry this morning, potassium is 3.9, bicarbonate 33, BUN 9, creatinine of 0.9. ProBNP on admission was normal. Troponins done on admission were also normal. White blood cell count 9600, hemoglobin 13.6, hematocrit 40.2, platelets are normal. Prealbumin was 14.1. IMPRESSION: Worsening hypoxemia. Differential diagnosis includes increasing atelectasis, aspiration (appears to be an aspiration risk more because of her cognitive abilities), could also have reflux with aspiration, development of thromboembolic disease given her relative immobility, potentially even cardiac causes, still BNP was normal on admission. Note, she did have some coronary calcifications noted on her other scans. 1. Large hiatal hernia with esophagitis. 2. Mild anemia. 3. Schizophrenia. RECOMMENDATIONS: 1. We will proceed with CTA of her chest. 2. Rule out thromboembolic disease. We will also allow better visualization of her lung lentz to assess for any infiltrates or atelectasis. 3. Continue neb treatments. 4. Out of bed as much as possible. [address] [address] CONSULTATION Name: ROSALINDA JORGENSEN Room: [address] IN .R.#: [id number] Admission: 06/27/18 Attend Phys: Edward Olvera MD Discharge: Date of : 42 Report #: [id number] 5. If infiltrates present, to start empiric antibiotics to cover for infection. <ELECTRONICALLY SIGNED> By: Ann Matamoros MD 07/06/18 1231 0825 [id number] Matamoros MD /nt
--- NOTE | 2018-07-06 17:56 | NUR ---
PATIENT ALERT AND ORIENTED TO SELF. VITAL SIGNS STABLE ON 6L O2 NASAL CANULA. AFEBRILE. IV PATENT AND SALINE LOCKED. AGGARWAL PATENT AND DRAINING. PAIN BEING MANAGED WITH PO MEDICATION. DENIES NAUSEA AT THIS TIME. MITTENS IN PLACE BILATERALLY. FALL PRECAUTIONS IN PLACE AND BED ALARM ON. HOURLY ROUNDS MAINTAINED THROUGHOUT THE SHIFT. CALL LIGHT WITHIN REACH. NURSING WILL CONTINUE TO MONITOR.
[2018-07-06 18:12] VITALS: BP 125/71
[2018-07-06 20:00] VITALS: BP 105/65
--- NOTE | 2018-07-07 05:27 | NUR ---
ASSUMED PT CARE AT 1930, PT ALERT AND ORIENTED TO SELF. POLITE AND COOPERATIVE WITH CARES. PT ON 6L 02 PER NC. TAKES PILLS CRUSHED IN PUDDING. SALINE LOCK TO RIGHT AC, ANTIBIOTICS INFUSED PER JUN. Q2 TURNS. AGGARWAL TO DD, DRAINING YELLOW URINE. LARGE STOOL THIS SHIFT. MITTENS IN PLACE BILATERALLY. FALL PRECAUTIONS IN PLACE AND BED ALARM ON FOR SAFETY. CALL LIGHT WITHIN REACH. HOURLY ROUNDING IN PROGRESS, WILL CONTINUE TO MONITOR.
[2018-07-07 08:00] VITALS: BP 110/61
--- NOTE | 2018-07-07 15:04 | 2DMMODE ---
[place] [address] 2 D/M-MODE ECHOCARDIOGRAM Name: ROSALINDA JORGENSEN Room: [address] IN [facility]#: [id number] Admission: 06/27/18 Attend Phys: Edward Olvera, Discharge: Date of : 42 Date of Service: 07/07/18 1504 Report #: [id number] THIS REPORT FOR: //name// APPROVED REPORT Study performed: 07/07/2018 09:29:45 EXAM: Comprehensive 2D, Doppler, and color-flow Echocardiogram Patient Location: In-Patient Room #: 104 Status: routine BSA: 1.82 HR: 80 bpm BP: 105/65 mmHg Rhythm: NSR Other Information Study Quality: Good Indications Pulmonary Embolism 2D Dimensions IVSd: 12.37 (7-11mm) LVOT Diam: 20.50 (18-24mm) LVDd: 48.60 mm PWd: 10.73 (7-11mm) Ascending Ao: 27.08 (22-36mm) LVDs: 29.89 (25-40mm) Aortic Root: 29.44 mm Volumes Left Atrial Volume (Systole) LA ESV Index: 36.50 mL/m2 Aortic Valve AoV Peak Fabrizio.: 1.91 m/s AO Peak Gr.: 14.54 mmHg LVOT Max P.32 mmHg AO Mean Gr.: 7.71 mmHg LVOT Mean P.11 mmHg LVOT Max V: 1.44 m/s AO V2 VTI: 30.38 cm LVOT Mean V: 0.93 m/s GABI (VTI): 2.85 cm2 LVOT V1 VTI: 26.23 cm Mitral Valve E/A Ratio: 0.88 MV Decel. Time: 258.99 ms MV E Max Fabrizio.: 1.04 m/[place] [address] 2 D/M-MODE ECHOCARDIOGRAM Name: ROSALINDA JORGENSEN Room: [address] IN [facility].#: [id number] Admission: 06/27/18 Attend Phys: Edward Olvera, Discharge: Date of : 42 Date of Service: 07/07/18 1504 Report #: [id number] MV PHT: 75.11 ms MVA (PHT): 2.93 cm2 TDI E/Lateral E': 11.56 E/Medial E': 14.86 Medial E' Fabrizio.: 0.07 m/s Lateral E' Fabrizio.: 0.09 m/s Pulmonary Valve PV Peak Fabrizio.: 1.58 m/s PV Peak Gr.: 10.02 mmHg Tricuspid Valve RAP Estimate: 5.00 mmHg TR Peak Gr.: 30.43 mmHg RVSP: 35.00 mmHg PA Pressure: 35.00 mmHg Left Ventricle The left ventricle is normal size. There is normal LV segmental wall motion. There is normal left ventricular wall thickness. Left ventricular systolic function is normal. The left ventricular ejection fraction is within the normal range. LVEF is 60-65%. The left ventricular diastolic function is normal. Right Ventricle The right ventricle is normal size. The right ventricular systolic function is normal. Atria Left atrium is mildly dilated. The right atrium size is normal. Aortic Valve Mild aortic valve sclerosis. No aortic regurgitation is present. There is no aortic valvular stenosis. Mitral Valve There is mitral annular calcification. There is no mitral valve regurgitation noted. No evidence of mitral valve stenosis. Tricuspid Valve The tricuspid valve is normal in structure. Trace tricuspid regurgitation. estimated pa pressure 40 mm Hg Pulmonic Valve The pulmonary valve is normal in structure. [place] [address] 2 D/M-MODE ECHOCARDIOGRAM Name: ROSALINDA JORGENSEN Room: [address]#: [id number] Admission: 06/27/18 Attend Phys: Edward Olvera, Discharge: Date of : 42 Date of Service: 07/07/18 1504 Report #: [id number] Great Vessels The aortic root is normal in size. IVC is not well visualized. Pericardium There is no pericardial effusion. <Conclusion> LVEF is 60-65%. Left atrium is mildly dilated. Mild aortic valve sclerosis. <ELECTRONICALLY SIGNED> By: Lev Castañeda MD, FACC 07/07/18 1504 1504 1504 Lev Castañeda MD, FAC /INF
[2018-07-07 16:18] VITALS: BP 111/57
--- NOTE | 2018-07-07 16:57 | NUR ---
PT ARRIVED FROM PACU AT 1640. PT A&Ox4. VITALS STABLE. CHARTED. TEDs, SCDs AND ICE PACK IN PLACE. NAUSEA AND PAIN STABLIZED. PT TOLERATING ICE CHIPS. DRESSING CLEAN, DRY AND INTACT. ON 3L0X, PULSE OX IN PLACE. IV IN L FA PATENT. FALL PRECAUTIONS IN PLACE. CALL LIGHT WITHIN REACH. WILL CONTINUE TO MONITOR.
--- NOTE | 2018-07-07 17:25 | NUR ---
PT WAS ALERT AND ORIENTED TO PLACE AND SELF TODAY. VITALS STABLE. CURRENTLY IN ISOLATION FOR PENDING MRSA. ATE AND DRANK WELL DURING MEALS. ABLE TO FEED SELF PART OF MEALS. WORKED WELL WITH THERAPY. GOT UP TO [facility], AND TO CHAIR TO EAT. PAIN CONTROLLED WITH TRAMADOL. CALL LIGHT WITHIN REACH. FALL PRECAUTIONS IN PLACE. WILL CONTINUE TO MONITOR.
[2018-07-07 21:00] VITALS: BP 155/66
[2018-07-08 08:00] VITALS: BP 103/54
[2018-07-08] MEDS ORDERED: IPRAT-ALBUT 0.5-3 ML INH (08:28)
[2018-07-08] MEDS ORDERED: CEFDINIR300 MG PO (08:28)
[2018-07-08] MEDS ORDERED: PREDNISONE 10 M10 MG PO (08:28)
[2018-07-08] MEDS ORDERED: CARAFATE 11 GM/10 M1 PO (08:28)
[2018-07-08] MEDS ORDERED: ERYTHROMYCIN250 M1 PO (08:28)
[2018-07-08] MEDS ORDERED: XARELTO15 MG PO (08:28)
[2018-07-08] MEDS ORDERED: FOLIC ACID1 MG PO (08:30)
--- NOTE | 2018-07-08 14:00 | NUR ---
NOTIFIED ZOHRA CALLAHAN THAT PT.WILL MOST LIKELY BE DISCHARGED TODAY. WAITING ON CONSULTS TO GIVE OK FOR DISCHARGE. SHE REQUESTED UPDATED MEDICAL INFORMATION SO HER D.O.N. COULD LOOK OVER IT. SHE WILL CALL CM BACK. FAXED DISCHARGE SUMMARY,PULMONARY CONSULT, PULMONARY NOTE FROM YESTERDAY,O2 HX, NURSE NOTE FROM 07/07, AND MRSA NEG.RESULTS TO HER [phone].
--- NOTE | 2018-07-08 16:34 | NUR ---
MANASA/ESTELA CALLAHAN CALLED BACK AND THEY CAN ACCEPT [facility] AFTER 02 CONCENTRATOR ARRIVES FROM THEIR [employer]MENT [employer] ABOUT 6PM. FAXED DISCHARGE SUMMARY TO HER. NOTIFIED MAR/US ON [facility]THO SURG THAT PT.DCING. CHART TO BE COPIED TO GO WITH PT. SHE WILL GIVE NURSING NUMBER TO CALL REPORT AND TELL NURSE TO CALL PT.S GUARDIAN. [facility] SET UP FOR 6:30-7PM WITH [facility] [phone]. THEY CAN TRANSPORT ON 6L/NC O2.
--- NOTE | 2018-07-08 16:45 | NUR ---
SPOKE TO PULMONARY AND THEY WERE OK WITH DISCHARGE ON THEIR END. HERMINIA IS OK WITH DISCHARGE ON HIS END WELL.
[2018-07-08 17:18] VITALS: BP 103/54
[2018-07-08 18:12] VITALS: BP 132/91
--- NOTE | 2018-07-08 19:49 | NUR ---
PT DISCHARGED AND LEFT UNIT AT 1945 WITH NURSING STAFF BY WHEELCHAIR SEN. REPORT CALLED. IV OUT. PT CLEANED AND NEW GOWN BEFORE LEFT. DISCHARGE PAPERS, PAPER PRESCRIPTIONS AND BELONGINGS SENT WITH PT.
--- NOTE | 2018-07-17 12:20 | CON ---
[address] [address] CONSULTATION Name: JAMEELROSALINDA Gunderson Room: [address] IN ..#: [id number] Admission: 06/27/18 Attend Phys: Edward Olvera MD Discharge: 07/08/18 Date of : 41 Report #: [id number] THIS REPORT FOR: //name// CC: Edward Kirk DICTATED BY: Laura Maria [facility] DATE OF SERVICE: 07/01/2018 Please note at the time of this dictation, the patient was seen and physically examined by myself. REASON FOR CONSULTATION: Abnormal CT findings in the esophagus and a large hiatal hernia. HISTORY OF PRESENT ILLNESS: This 78-year-old female who has a history of schizophrenia, who is nonverbal in answering any questions. It appears from the nursing staff that the patient had not had anything to eat or drink for the last 3 to 4 days and they did notice a little bit of coffee-ground emesis. The patient was then admitted here for possible dehydration and further evaluation. The patient was seen by us back in 2017. In 08/2017, she underwent an EGD that showed grade D esophagitis and benign appearing esophageal stenosis. She had an 8 cm hiatal hernia. At that time, recommendations were made and the patient was to come back and have a repeat EGD in 3 months, which she never did. ALLERGIES: No known drug allergies. MEDICATIONS: From home include Flonase, Seroquel, vitamin D, Tylenol, MiraLax, Protonix, iron, Lasix, Zantac and ____ [place] cough drops PAST MEDICAL HISTORY: Schizophrenia, allergic rhinitis and vitamin D deficiency. PAST SURGICAL HISTORY: Tubal ligation and her previous EGD. FAMILY HISTORY: Noncontributory. SOCIAL HISTORY: She has a past history of alcohol abuse. She does reside in a shelter and no tobacco use. REVIEW OF SYSTEMS: Twelve-point review of systems is essentially negative except what is mentioned in the HPI and this was all obtained from chart due to [place] [address] CONSULTATION Name: ROSALINDA JORGENSEN Room: [address]#: [id number] Admission: 06/27/18 Attend Phys: Edward Olvera MD Discharge: 07/08/18 Date of : 41 Report #: [id number] PHYSICAL EXAMINATION: VITAL SIGNS: Temperature 36.6, pulse 75, respirations 18 and blood pressure 104/60. HEART: Regular rate and rhythm. LUNGS: Diminished, but clear. ABDOMEN: Soft, positive bowel sounds in all 4 quadrants without any masses or tenderness noted. LABORATORY DATA: White count is 7.4, hemoglobin is 15 and platelet count is 227. Sodium 136, potassium 3.3, GFR is 81. CT showed a large portion of the stomach herniating into the lower chest. There was thickening noted in the distal esophagus and diverticula noted in the colon. IMPRESSION: 1. Abnormal CT with thickened esophagus. 2. Coffee-ground emesis. 3. Abdominal pain. 4. Large hiatal hernia noted to be in the chest cavity. Surgery on board. PLAN: 1. EGD tomorrow. Unable to do today's since she went down for an upper GI series. 2. Upper GI series results pending. 3. Further recommendations to be made once the procedure has been performed. Thank you for allowing us to participate in this patient's care. Please do not hesitate to call with any questions in regard to this consult. <ELECTRONICALLY SIGNED> By: Sammi Ham MD 07/17/18 1220 1035 [id number] Ham MD /nt
--- NOTE | 2018-07-17 12:20 | CON ---
[address] [address] CONSULTATION Name: ROSALINDA JORGENSEN Room: [address] IN M.[facility].#: [id number] Admission: 06/27/18 Attend Phys: Edward Olvera MD Discharge: 07/08/18 Date of : 42 Report #: [id number] THIS REPORT FOR: //name// CC: Edward Kirk DATE OF SERVICE: 07/01/2018 ADDENDUM I have personally seen and examined the patient and reviewed labs and imaging. The patient with history of dysphagia who had undergone upper endoscopy in 08/2017 by my partner, Dr. Chatman. 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 She was supposed to take double dose of PPI and followup. Since admission, she had a swallow study, which showed a moderate sized hiatal hernia with the fundus being in the chest. There was also slow emptying of the esophagus. We will perform an upper endoscopy and if the patient has distal esophageal stricture as a cause of slow emptying of the esophagus, we will dilate her entire esophagus. If ____ inflammation, we will consider double dose of PPI and possibly Carafate. We will make further recommendation based on finding. <ELECTRONICALLY SIGNED> By: Sammi Ham MD 07/17/18 1220 1219 [id number] Ham MD /cam
== END 2018-07-08 19:45 | DRG 377 ==
LOC: M.ERS 13:42 → M.ORTHSURG 16:20 → M.TBA-ER 16:20 → M.ORTHSURG 18:12
PROVIDERS: Emergency Medicine; Family Medicine; Internal Medicine Pulmonary Disease; ADMIT Internal Medicine
PROC: 0DB58ZX Excision of Esophagus, Via Natural or Artificial Opening Endoscopic, Diagnostic (ICD-10-PCS; principal; 2018-07-02)
DX: K25.4 Chronic or unspecified gastric ulcer with hemorrhage (principal); J96.01 Acute respiratory failure with hypoxia; J96.02 Acute respiratory failure with hypercapnia; I26.99 Other pulmonary embolism without acute cor pulmonale; J69.0 Pneumonitis due to inhalation of food and vomit; E44.1 Mild protein-calorie malnutrition; E87.0 Hyperosmolality and hypernatremia; K22.10 Ulcer of esophagus without bleeding; K29.70 Gastritis, unspecified, without bleeding; K31.84 Gastroparesis; F20.9 Schizophrenia, unspecified; E86.0 Dehydration; F03.90 Unspecified dementia, unspecified severity, without behavioral disturbance, psychotic disturbance, mood disturbance, and anxiety; K44.9 Diaphragmatic hernia without obstruction or gangrene; R33.9 Retention of urine, unspecified; K21.0 Gastro-esophageal reflux disease with esophagitis; E87.6 Hypokalemia; E83.42 Hypomagnesemia; K25.9 Gastric ulcer, unspecified as acute or chronic, without hemorrhage or perforation; E53.8 Deficiency of other specified B group vitamins; E86.9 Volume depletion, unspecified; D64.9 Anemia, unspecified; Z68.27 Body mass index [BMI] 27.0-27.9, adult; Z79.51 Long term (current) use of inhaled steroids; Z79.899 Other long term (current) drug therapy

== ENCOUNTER → 2018-10-07 | Day surgery (SDC) | payer MEDICAID ==
[~2018-10-07] MED LIST changes: +CARAFATE 11 GM/10 M1 PO; +CEFDINIR300 MG PO; +ERYTHROMYCIN250 M1 PO; +FOLIC ACID1 MG PO; +HALLS3.2 MG PO; +IPRAT-ALBUT 0.5-3 ML INH; +LASIX 20 MG TAB20 MG PO; +PREDNISONE 10 M10 MG PO; +XARELTO15 MG PO; +XARELTO20 MG PO; +ZANTAC 150MG T150 MG PO
[2018-10-07 09:03] LABS: CREATININE 0.7 mg/dL (0.6-1.3); POTASSIUM 3.8 mmol/L (3.5-5.1)
[2018-10-07 09:12] LABS: HEMATOCRIT 43.2 % (37.0-47.0); HEMOGLOBIN 14.2 gm/dL (12.0-15.0); MCH 29.4 pg (26.0-34.0); MCHC 32.9 g/dL (28.0-37.0); MCV 89.1 fL (80.0-100.0); MPV 8.6 fl. (7.2-11.1); RBC 4.85 mil/uL (4.20-5.00); RDW-CV 13.5 % (10.5-14.5)
[2018-10-07 10:49] LABS: ALBUMIN 3.2 g/dL (3.4-5.0); DIRECT BILIRUBIN 0.1 mg/dL (<0.1-0.3); TOTAL BILIRUBIN 0.5 mg/dL (<0.1-1.0); TOTAL PROTEIN 6.4 g/dL (6.4-8.2)
== END | disposition home or self-care (01) ==
LOC: M.SUR 07:00
PROVIDERS: Internal Medicine Gastroenterology
DX: K21.0 Gastro-esophageal reflux disease with esophagitis (principal); K22.70 Barrett's esophagus without dysplasia; K44.9 Diaphragmatic hernia without obstruction or gangrene; D64.9 Anemia, unspecified; F20.9 Schizophrenia, unspecified; Z98.51 Tubal ligation status; Z79.899 Other long term (current) drug therapy